=== PATIENT | female | born 1960 | race Caucasian/White ===

== ENCOUNTER 2022-08-26 21:26 | Emergency (ER) | payer OTHER ==
[~2022-08-26] VITALS: Ht 162.6 cm; Wt 84.8 kg
[~2022-08-26 21:26] MED LIST: BALS1.1T PO; BUDE180P IH; FLONAS NS; LANS15EC28 PO; METF1TAB PO
[2022-08-26 21:33] VITALS: BP 159/79
--- NOTE | 2022-08-26 21:33 | NUR ---
PT GAB BLS. TAKEN TO BED 5
--- NOTE | 2022-08-26 21:38 | NUR ---
Dr. Monge examining patient.
[2022-08-26 22:20] LABS: BASOPHILS # (AUTO) 0.1 K/uL (0.00-0.22); BASOPHILS % (AUTO) 1.1 % (0.0-2.0); EOSINOPHILS # (AUTO) 0.6 K/uL (0-0.4); HEMATOCRIT 31.9 % (36-48); HEMOGLOBIN 10.4 g/dL (12.0-16.0); LYMPHOCYTES # (AUTO) 4.8 K/uL (2.5-16.5); LYMPHOCYTES % (AUTO) 41.9 % (20.5-51.1); MEAN CORPUSCULAR HEMOGLOBIN 28 pg (27-31); MEAN CORPUSCULAR HGB CONC 33 g/dL (33-37); MONOCYTES # (AUTO) 0.7 K/uL (0.8-1.0); MONOCYTES % (AUTO) 6.6 % (1.7-9.3); NEUTROPHILS # (AUTO) 5.2 K/uL (1.8-7.7); NEUTROPHILS % (AUTO) 45.4 % (42.2-75.2); PLATELET COUNT (AUTO) 337 K/uL (140-450); RED BLOOD CELL COUNT(AUTO) 3.71 MIL/uL (4.20-5.40); RED CELL DISTRIBUTION WIDTH 15.7 % (11.6-13.7); WHITE BLOOD COUNT (AUTO) 11.4 K/uL (4.8-10.8)
[2022-08-26 22:35] LABS: ANION GAP 17.3 (8-16); CARBON DIOXIDE 20.2 mmol/L (21-32); POTASSIUM 3.5 mmol/L (3.5-5.1); TOTAL BILIRUBIN 0.1 mg/dL (0.0-1.0)
--- NOTE | 2022-08-26 22:40 | NUR ---
Spoke with patient's family to update patient status.
--- NOTE | 2022-08-26 23:18 | NUR ---
Spoke with patient's family (Belle) to update patient status.
--- NOTE | 2022-08-27 01:22 | NUR ---
Dr. Monge at bedside with family
[2022-08-27 01:40] VITALS: BP 148/72
[2022-08-27] MEDS ORDERED: NAPR-54 PO (01:40)
--- NOTE | 2022-08-27 01:41 | NUR ---
DCPatient discharged with v/s stable BY ERMD. Written and verbal after care instructions given and explained. Patient alert, oriented and verbalized understanding of instructions. Wheel Chair Assisted with to car. All questions addressed prior to discharge. ID band removed. Patient advised to follow up with PMD. Rx of NAPROXEN 500MG PO given. Patient educated on indication of medication including possible reaction and side effects. Opportunity to ask questions provided and answered.
== END 2022-08-27 01:41 | disposition home or self-care (01) ==
LOC: MED 21:26
DX: S00.83XA Contusion of other part of head, initial encounter (principal); F10.129 Alcohol abuse with intoxication, unspecified; J45.909 Unspecified asthma, uncomplicated; K21.9 Gastro-esophageal reflux disease without esophagitis; I10 Essential (primary) hypertension; Z79.899 Other long term (current) drug therapy; W19.XXXA Unspecified fall, initial encounter; Y93.89 Activity, other specified; Y92.89 Other specified places as the place of occurrence of the external cause; Y99.8 Other external cause status
CPT/HCPCS: 36415; 70450; 72125; 80053; 85025; 99284; G0482